=== PATIENT | female | born 1990 | race Two or more races ===

== ENCOUNTER 2016-06-23 17:40 | Emergency (ER) | payer MEDICAID ==
[2016-06-23 17:47] VITALS: BP 124/64
[2016-06-23] MEDS ORDERED: ONDANSETRON 4 MG TAB.RAPDIS PO ONE (17:56)
--- NOTE | 2016-06-23 18:00 | ER Document Report ---
ED GI/ - General Chief Complaint: Abdominal Pain Stated Complaint: VOMITING/DIARRHEA Notes: Patient says that for the past 4 days, she's had vomiting and diarrhea. She says that she is vomiting every time she eats anything and has a diarrhea stool about every time she vomits. Today, she says that she's vomited 7 times and had 7 loose stools. Each time she has them, she feels dizzy. Has not had a fever. Has not noticed any blood in her tools. Has a decreased appetite and doesn't feel like eating. Has abdominal pain across the upper midline region. No lower quadrant abdominal pain. No UTI symptoms. Denies fever. LMP 4 days ago. On no control. TRAVEL OUTSIDE OF THE [place] IN LAST 30 DAYS: No - Related Data Allergies/Adverse Reactions: No Known Allergies Allergy (Unverified 06/23/16 17:44) Past Medical History - Social History Smoking Status: Current Every Day Smoker Family History: Reviewed & Not Pertinent Patient has suicidal ideation: No Patient has homicidal ideation: No Review of Systems - Review of Systems Constitutional: denies: Fever Cardiovascular: denies: Chest pain Respiratory: denies: Cough, Short of breath, Wheezing Gastrointestinal: See HPI, Abdominal pain, Diarrhea, Nausea, Vomiting. denies: Abdomen distended Genitourinary: No symptoms reported Female Genitourinary: Last menstrual period - Finished 4 days ago. Skin: denies: Rash Physical Exam - Vital signs Vitals: Temp Pulse Resp BP Pulse Ox 98.6 F 72 20 124/64 100 06/23/16 17:44 06/23/16 17:44 06/23/16 17:44 06/23/16 17:44 06/23/16 17:44 Interpretation: Normal - Notes Notes: PHYSICAL EXAMINATION: GENERAL: Well-appearing, in no acute distress. Ambulatory without difficulty. Vital signs are all normal. Looks well. HEAD: Atraumatic, normocephalic. ENT: oropharynx clear without exudates. Moist mucous membranes. NECK: Normal range of motion, supple. LUNGS: Breath sounds clear and equal bilaterally. HEART: Regular rate and rhythm without murmurs. ABDOMEN: Soft, nontender. No guarding or rebound. No real specific tenderness anywhere. No masses felt. BACK: No tenderness throughout entire back. EXTREMITIES: Normal range of motion without pain. NEUROLOGICAL: Normal speech, normal gait. Normal sensory, motor, and reflex exams. Awake, alert, and oriented x3. Cranial nerves normal. SKIN: Warm, dry, no rashes. Course - Re-evaluation Re-evalutation: 06/23/16 18:02 Patient will be given Zofran in the emergency department and some labs will be checked. 06/23/16 19:29 All of patient's lab results are essentially normal except for a positive test. Patient's lab studies do not indicate that she is significantly dehydrated. I've ordered a confirmatory quantitative hCG and in discharging the patient with Phenergan for nausea or vomiting. 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 I advised the patient to return at any time if she develops recurrent vaginal bleeding or if she develops significant pelvic pain and discomfort. She was advised to follow-up with a local [facility] possible. - Vital Signs Vital signs: Temp Pulse Resp BP Pulse Ox 98.6 F 85 20 124/64 100 06/23/16 17:46 06/23/16 17:46 06/23/16 17:46 06/23/16 17:46 06/23/16 17:46 - Laboratory Result Diagrams: 06/23/16 17:57 06/23/16 17:57 Laboratory results interpreted by me: 06/23/16 06/23/16 06/23/16 17:55 17:57 17:57 Hgb 10.6 L Hct 33.4 L MCV 78 L MCH 24.7 L MCHC 31.8 L RDW 20.0 H BUN 6 L Glucose 114 H Serum HCG, Qual Beta HCG, Quant 002883.00 H Urine Protein Urine Ketones Ur Leukocyte Esterase 06/23/16 06/23/16 17:57 17:57 Hgb Hct MCV MCH MCHC RDW BUN Glucose Serum HCG, Qual POSITIVE H Beta HCG, Quant Urine Protein 30 H Urine Ketones TRACE H Ur Leukocyte Esterase SMALL H Discharge - Discharge Clinical Impression: Vomiting and diarrhea, Viral illness Qualifiers: Weeks of gestation: less than 8 weeks Qualified Code(s): Z3A.01 - Less than 8 weeks gestation of Condition: Stable Disposition: HOME, SELF-CARE Additional Instructions: VOMITING: Vomiting (or nausea without vomiting) can be caused by many other different problems. It can mean that something's wrong with the stomach, such as ulcers or inflammation or the intestinal tract, such as appendicitis. But it can also be a symptom of a problem that has nothing to do with the stomach or intestines. Vomiting is common with severe headaches, earaches, tonsillitis, and kidney infections, etc. We see it with pneumonia or heart attacks. Drugs can cause nausea and vomiting. Many abdominal problems cause vomiting; for example, gallstones, kidney stones, pancreatitis, and intestinal obstruction ( blocked bowels). In most cases, curing the vomiting depends on fixing the problem that caused it. For temporary relief, we may use an anti-nausea medicine. For home use, we can prescribe suppositories, chewable pills, pills that dissolve in the mouth, or liquid anti-nausea drugs. If the vomiting seems to be caused by a problem in the stomach, acid-suppressing drugs may be prescribed as well. It's important to avoid dehydration. Sip small amounts of clear liquids ( soft drinks, tea, broth, etc) . Try to take fluids frequently even if you are vomiting to prevent dehydration. Take increasing amounts of fluid and when liquids are being consumed successfully, advance to small amounts of bland food (toast, soups, mashed potatoes, etc.) until you are able to resume a regular diet. Avoid aspirin, tobacco, and alcohol. If the vomiting worsens, if the problem that's making you vomit worsens, or if there's evidence of bleeding in the stomach (such as black, tarry stool, or bloody or black vomit), you should return immediately. Also, return if abdominal pain worsens or becomes localized to one area or you develop high fever. Call your doctor if you aren't improved in 24 hours. DIARRHEA, NON-SPECIFIC: Diarrhea means frequent, watery stools. There are many causes. Any problem that keeps the intestinal tract from absorbing water from the stool can lead to diarrhea. A sudden new diarrhea problem is usually caused by a virus, food sensitivity, toxic bacteria, or drugs. In this case, we expect the problem to go away soon. Testing is done only if you seem seriously ill from the diarrhea. If you have chronic diarrhea, or diarrhea that keeps coming back, we need to find out why. Chronic diarrhea can be due to inflammation of the bowels such as Crohn's disease or ulcerative colitis, food sensitivity such as intolerance to lactose or wheat protein, irritable bowel syndrome, and other problems. If your diarrhea is a significant problem but it's not clear why you have it, we' ll refer you to a specialist for further testing. During an episode of diarrhea, drink small amounts (two to six ounces) of clear liquids (soft drinks, sport drinks, herb teas, broth, etc). Take fluids frequently to prevent dehydration. It's usually not a problem to take mild anti- diarrhea medication such as Kaopectate or Pepto-Bismol. As the diarrhea eases, advance to small amounts of bland food (mashed potato, toast) for 24 hours. Call the physician if blood appears in your vomit or stool, if vomiting lasts longer than 24 hours, if the abdominal pain worsens or becomes localized to one area, if you develop high fever, or if you become lightheaded and weak. VIRAL SYNDROME: The physician has diagnosed a viral infection. Viruses not only cause "colds," but can cause many different symptoms including generalized aching, fever, headache, cough, diarrhea, nausea, vomiting, and fatigue. The treatment, for the most part, is simply relief of symptoms. This means that antibiotics are usually not given. Rest, fluids, pain medications and, occasionally, medication for the specific symptoms that are most bothersome will be prescribed. Use good handwashing to avoid passing the virus to others. Shared toys should be cleaned with disinfectant. Clean the toilets, sinks, and counter surfaces in bathrooms. Launder clothing in hot water. Contact the physician if you develop any new or unusual symptoms such as severe headache, stiff neck, high fever, chest pain, productive cough, or shortness of breath. You should be rechecked if you don't see marked improvement within seven to 10 days. ANTINAUSEA MEDICATION: You have been given a medication to suppress nausea and vomiting. This type of medication can be given as a shot, pill, or suppository. It will usually last for many hours. Pills and shots usually last six to eight hours. For the typical illness, only one or two doses of the medication may be necessary. Mild lightheadedness may occur. This type of medicine can cause drowsiness. Do not drive or operate dangerous machinery while under its influence. Do not mix with alcohol. See your doctor at once if you have muscle spasms or tightness, or uncontrollable motions (particularly of the neck, mouth, or jaw). Persistent vomiting or severe lightheadedness should also be evaluated by the physician. You are . care is best started as early in as possible. If you're unsure about continuing this , you should discuss this with your physician or with it security project manager at [facility]. You should take only medications approved by your physician. Acetaminophen can safely be taken for minor pains. As a rule, medication for chronic conditions such as asthma or seizures can safely be continued. You should discuss with the physician every medicine you take. Any regular exercise program can be continued. Talk to your physician, however, before engaging in competitive or demanding sports. Alcohol, smoking, and "street drugs" are dangerous to your baby. Cocaine is especially dangerous. Don't use any illicit drugs! You should arrange to follow-up with a local [facility] in the coming week or 2. If you have recurring vaginal bleeding, you can return for us to reassess your situation. FOLLOW-UP CARE: If you have been referred to a physician for follow-up care, call the physician s office for an appointment as you were instructed or within the next two days. If you experience worsening or a significant change in your symptoms, notify the physician immediately or return to the Emergency Department at any time for re-evaluation. Prescriptions: Promethazine HCl [Phenergan 25 mg Tablet] 1 - 2 tab PO Q6H PRN #15 tablet PRN Reason:
[2016-06-23 18:28] LABS: APPEARANCE,URINE SLIGHTLY-CLOUDY; BILIRUBIN,URINE NEGATIVE (NEGATIVE); GLUCOSE, URINE NEGATIVE (NEGATIVE); KETONES,URINE TRACE mg/dL (NEGATIVE); LEUKOCYTE ESTERASE,URINE SMALL (NEGATIVE); NITRITE,URINE NEGATIVE (NEGATIVE); PROTEIN,URINE 30 mg/dL (NEGATIVE); URINE SPECIFIC GRAVITY 1.027; UROBILINOGEN,URINE NEGATIVE mg/dL (<2.0)
[2016-06-23 18:38] LABS: ABSOLUTE EOSINOPHILS # (AUTO) 0.1 10^3/uL (0.0-0.6); ABSOLUTE LYMPHOCYTES (AUTO) 2.1 10^3/uL (0.5-4.7); ABSOLUTE MONOCYTES (AUTO) 0.6 10^3/uL (0.1-1.4); ABSOLUTE NEUT (AUTO) 6.4 10^3/uL (1.7-8.2); BASOPHILS % (AUTO) 0.3 % (0-2); EOSINOPHILS % (AUTO) 0.6 % (0-6); HEMATOCRIT 33.4 % (36.0-47.0); HEMOGLOBIN 10.6 g/dL (12.0-15.5); HGB HCT DIFFERENCE -1.6; LYMPHOCYTES % (AUTO) 22.9 % (13-45); MEAN CORPUSCULAR HEMOGLOBIN 24.7 pg (27.0-33.4); MEAN CORPUSCULAR HGB CONC 31.8 g/dL (32.0-36.0); MEAN CORPUSCULAR VOLUME 78 fl (80-97); MONOCYTES % (AUTO) 6.6 % (3-13); RED BLOOD COUNT 4.29 10^6/uL (3.72-5.28); SEGMENTED NEUTROPHILS % (AUTO) 69.6 % (42-78); WHITE BLOOD COUNT 9.1 10^3/uL (4.0-10.5)
[2016-06-23 18:55] LABS: ALANINE AMINOTRANSFERASE 25 U/L (9-52); ALKALINE PHOSPHATASE 65 U/L (38-126); ANION GAP 11 (5-19); ASPARTATE AMINO TRANSFERASE 15 U/L (14-36); BILIRUBIN,DIRECT 0.2 mg/dL (0.0-0.4); BILIRUBIN,TOTAL 0.4 mg/dL (0.2-1.3); BLOOD UREA NITROGEN 6 mg/dL (7-20); CALCIUM 9.3 mg/dL (8.4-10.2); CARBON DIOXIDE 22 mmol/L (22-30); CHLORIDE 107 mmol/L (98-107); CREATININE RESULT 0.67 mg/dL (0.52-1.25); GLUCOSE 114 mg/dL (75-110); POTASSIUM 4.2 mmol/L (3.6-5.0); SODIUM 140.3 mmol/L (137-145); TOTAL PROTEIN 7.4 g/dL (6.3-8.2)
== END 2016-06-23 19:27 | disposition home or self-care (01) ==
LOC: ER 17:40
DX: O21.9 Vomiting of pregnancy, unspecified (principal); O98.511 Other viral diseases complicating pregnancy, first trimester; O26.891 Other specified pregnancy related conditions, first trimester; R19.7 Diarrhea, unspecified; R42 Dizziness and giddiness; R63.0 Anorexia; R10.13 Epigastric pain; O99.331 Smoking (tobacco) complicating pregnancy, first trimester; Z3A.01 Less than 8 weeks gestation of pregnancy
CPT/HCPCS: 99284; 36415; 84702; 84703; 85025; 80053; 81001; S0119

== ENCOUNTER 2017-07-21 11:03 | Outpatient (CLI) | payer MEDICAID ==
[2017-07-21] MEDS ORDERED: BETAMET ACET/BETAMET NA INJ 6 MG/1 ML IM ONE ×2 (11:35→12:16)
[2017-07-21 12:01] LABS: APPEARANCE,URINE SLIGHTLY-CLOUDY; BILIRUBIN,URINE NEGATIVE (NEGATIVE); COLOR,URINE YELLOW; GLUCOSE, URINE NEGATIVE (NEGATIVE); KETONES,URINE NEGATIVE (NEGATIVE); LEUKOCYTE ESTERASE,URINE TRACE (NEGATIVE); NITRITE,URINE NEGATIVE (NEGATIVE); PROTEIN,URINE 30 mg/dL (NEGATIVE); URINE SPECIFIC GRAVITY 1.019; UROBILINOGEN,URINE NEGATIVE mg/dL (<2.0)
[2017-07-21] MEDS ORDERED: BETAMET ACET/BETAMET NA INJ 6 MG/1 ML ONE (12:12)
[2017-07-21 12:22] LABS: URINE AMPHETAMINES SCREEN NEGATIVE; URINE BARBITURATES SCREEN NEGATIVE; URINE BENZODIAZEPINES SCREEN NEGATIVE; URINE COCAINE SCREEN NEGATIVE; URINE METHADONE SCREEN NEGATIVE; URINE PHENCYCLIDINE SCREEN NEGATIVE
[2017-07-21 12:24] LABS: URINE MARIJUANA (THC) SCREEN UNCONFIRMED POSITIVE
--- NOTE | 2017-07-21 15:19 | Non Stress Test Report ---
Non Stress Test Datetime Report Generated by CPN: 07/21/2017 15:18 DEMOGRAPHIC EGA NST: 32.3 INDICATION Indication for Study: Ordered by Provider; Other Indication for Study (NST) Other: labor check MONITORING Monitor Explained: Monitor Explained; Test Explained; Patient Verbalized Understanding Time on Monitor: 07/21/2017 11:25 Time off Monitor: 07/21/2017 12:57 NST Duration: 92 NST INTERVENTIONS NST Interventions: None Physician Notified NST: H. Timo CNM BABY A: [id number] BABY A Movement : Present Contraction Frequency : none FHR Baseline : 140 Accelerations : 15X15 Decelerations : None Variability : Moderate 6-25bpm NST Review: Meets Criteria for Reactive NST NST Review and Verified By : Breann Camp RNC NST Results: Reactive NST REPORT Report Trigger: Send Report
== END 2017-07-21 13:17 | disposition home or self-care (01) ==
LOC: LC 11:03
PROVIDERS: ATTEND Student in an Organized Health Care Education/Training Program
PROC: 4A1HXCZ Monitoring of Products of Conception, Cardiac Rate, External Approach (ICD-10-PCS; principal; 2017-07-21)
DX: O26.873 Cervical shortening, third trimester (principal); Z3A.32 32 weeks gestation of pregnancy
CPT/HCPCS: 59025; 96372; 81001; 80307; G0480 ×2; J0702

== ENCOUNTER → 2017-07-22 | Outpatient (CLI) | payer MEDICAID ==
[~2017-07-22] MED LIST: BETAMET ACET/BETAMET NA INJ 6 MG/1 ML ONE
== END ==
LOC: LC 12:00
PROVIDERS: ATTEND Obstetrics & Gynecology
PROC: 4A1HXCZ Monitoring of Products of Conception, Cardiac Rate, External Approach (ICD-10-PCS; principal; 2017-07-22)
DX: O26.873 Cervical shortening, third trimester (principal); Z3A.32 32 weeks gestation of pregnancy
CPT/HCPCS: 59025; J0702

== ENCOUNTER 2017-08-12 05:17 | Inpatient (IN) | payer MEDICAID ==
[2017-08-12] MEDS ORDERED: RINGERS SOLUTION,LACTATED 1,000 ML IV PRN (05:28)
[2017-08-12] MEDS ORDERED: MISOPROSTOL 0.2 MG TABLET ONE (05:30)
[2017-08-12] MEDS ORDERED: LIDOCAINE 1% INJ-PF (10 MG/ML) 30 ML SDV ONE (05:30)
[2017-08-12] MEDS ORDERED: OXYTOCIN/NORMAL SALINE 20 UNIT/1,000 ML RTUINJ ONE (05:31)
[2017-08-12] MEDS ORDERED: PENICILLIN G-K 5 MILLION UNIT VIAL ONE (05:31)
--- NOTE | 2017-08-12 05:35 | Admission Physical ---
Datetime Report Generated by CPN: 08/12/2017 05:34 CURRENT ADMISSION Indication for Induction: Not Applicable Admit Impression : , Intrauterine ; Active Labor Admit Plan: Admit to Unit; Initiate Labor Protocol ALLERGIES Medication Allergies: No Medication Allergies: No Known Allergies (06/23/2016) Latex: No Latex Allergies OBSTETRICAL HISTORY EDC: 09/12/2017 00:00 : 5 Para: 2 Term: 1 : 1 SAB: 2 IAB: 0 Ectopic: 0 Livin Cesareans: 0 VBACs: 0 Multiple Births: 0 SEE RECORDS Alcohol: No Marijuana : No Cocaine: No Other Illicit Drugs: No Cigarettes: Former Smoker. [id number] PHYSICAL EXAM General: Normal HEENT: Normal Neurologic: Normal Thyroid: Normal Heart: Normal Lungs: Normal Breast: Normal Back: Normal Abdomen: Normal Genitourinary Exam: Normal Extremities: Normal DTRs: Normal Pelvic Type: Adequate Vital Signs: Reviewed VAGINAL EXAM Dilatation: 6 Effacement: 100 Station: -1 MEMBRANES Pooling: Negative Membranes: Intact FETUS A Monitoring: External US FHR- Baseline: 140 Variability: Moderate 6-25bpm Accelerations: 15X15 Decelerations: None FHR Category: Category I Estimated Weight (gm): 3100 Presentation: Vertex Admit Comment: deliveries x 2 in previous pregnancies, will treat GBS as it is unknown PLANS FOR LABOR AND DELIVERY Labor and Delivery: None Pain Management: Natural Feeding Preference: Formula Benefit of Breast Feed Discussed: Yes Circumcision: Yes INFORMED CONSENT Signature: with User ID: [email or web address]
[2017-08-12 06:09] LABS: HEMATOCRIT 24.6 % (36.0-47.0); HEMOGLOBIN 8.1 g/dL (12.0-15.5); MEAN CORPUSCULAR HEMOGLOBIN 26.9 pg (27.0-33.4); MEAN CORPUSCULAR HGB CONC 33.1 g/dL (32.0-36.0); MEAN CORPUSCULAR VOLUME 81 fl (80-97); PLATELET COUNT 290 10^3/uL (150-450); RED BLOOD COUNT 3.03 10^6/uL (3.72-5.28); RED CELL DISTRIBUTION WIDTH 16.2 % (11.5-14.0)
[2017-08-12] MEDS ORDERED: EPHEDRINE SULFATE INJ 50 MG/1 ML AMPULE ONE (06:16)
[2017-08-12] MEDS ORDERED: BUPIVACAINE HCL 0.25 % INJ/PF (2.5 MG/1 ML) 30 ML VIAL ONE (06:16)
[2017-08-12] MEDS ORDERED: FENTANYL/BUPIVACAINE/NS/PF 300 MCG/150 ML RTUINJ EPI ONE (06:16)
[2017-08-12] MEDS ORDERED: FENTANYL CITRATE INJ/PF 100 MCG/2 ML AMPUL ONE (06:17)
[2017-08-12] MEDS ORDERED: LIDOCAINE 2%/EPINEPHRINE INJ 20 ML VIAL ONE (06:31)
--- NOTE | 2017-08-12 07:41 | L&D Progress Notes ---
PROGRESS NOTES Datetime Report Generated by CPN: 08/12/2017 07:40 PROGRESS NOTE Impression: Reassuring Heart Rate Procedures: Artificial ROM Plan: Continue Present Management Vital Signs : Reviewed Comment: Pt feeling ctx pt with heavier bleeding, 2 golfball size clots AROM, clear VAGINAL EXAM Dilatation: 9 Dilatation: 6 Effacement: 100 Effacement: 100 Station: 0 Station: -1 Contractions: 2-10 MEMBRANES Pooling: Negative Membranes: Ruptured Membranes: Intact Amniotic Fluid Color: Clear FETUS A FHR - Baseline: 145 Variability: Moderate 6-25bpm Accelerations: 15X15 Decelerations: None FHR Category: Category I : 35.4 Estimated Weight (gm): 3100 Presentation: Vertex SIGNATURE SIGNATURE: [id number] SIGNATURE: ,[id number];,[id number] SIGNATURE: [id number] Assignment: Michelle Fontenot MD Signature: with User ID: [email or web address] : with User ID: [email or web address]
[2017-08-12] MEDS ORDERED: ACETAMINOPHEN WITH CODEINE #3 TABLET ONE (08:33)
[2017-08-12] MEDS ORDERED: PENICILLIN G POTASSIUM 2,500,000 UNIT in DEXTROSE 5%-WATER 50 ML IV SCH (09:30)
[2017-08-12] MEDS ORDERED: OXYTOCIN/NORMAL SALINE 20 UNIT/1,000 ML RTUINJ IV PRN (10:12)
[2017-08-12] MEDS ORDERED: BENZOCAINE/MENTHOL AEROSOL SPRAY 56 ML TOP PRN (10:12)
[2017-08-12] MEDS ORDERED: DIPH/PERTUSS(ACELL)/TETANUS VAC/PF 0.5 ML SYR (>=10YO) IM PRN (10:12)
[2017-08-12] MEDS ORDERED: DIBUCAINE 1% OINTMENT 28 GM TP PRN (10:12)
[2017-08-12] MEDS ORDERED: MEASLES,MUMPS&RUBELLA VACC/PF 0.5 ML VIAL SUBCUT PRN (10:12)
[2017-08-12] MEDS ORDERED: ZOLPIDEM TARTRATE 5 MG TABLET PO PRN (10:12)
[2017-08-12] MEDS ORDERED: ACETAMINOPHEN WITH CODEINE #3 TABLET PO PRN ×2 (10:12)
[2017-08-12] MEDS: IBUPROFEN 800 MG TABLET PO SCH ×2 (14:24→21:38)
[2017-08-12] MEDS: DOCUSATE SODIUM 100 MG CAPSULE PO SCH (17:14)
[2017-08-12] MEDS: FERROUS SULFATE 325 MG TABLET PO SCH (17:14)
[2017-08-13] MEDS: IBUPROFEN 800 MG TABLET PO SCH ×3 (05:49→21:06)
[2017-08-13 06:51] LABS: MEAN CORPUSCULAR HEMOGLOBIN 27.5 pg (27.0-33.4); MEAN CORPUSCULAR HGB CONC 33.6 g/dL (32.0-36.0); MEAN CORPUSCULAR VOLUME 82 fl (80-97); PLATELET COUNT 257 10^3/uL (150-450); RED BLOOD COUNT 2.45 10^6/uL (3.72-5.28); RED CELL DISTRIBUTION WIDTH 16.2 % (11.5-14.0); WHITE BLOOD COUNT 10.7 10^3/uL (4.0-10.5)
[2017-08-13 06:58] LABS: HEMOGLOBIN 6.7 g/dL (12.0-15.5)
--- NOTE | 2017-08-13 09:38 | PDOC PROGRESS REPORT ---
Subjective-OB Progress Note for:: 08/13/17 Subjective: s/p day #1 Pt denies concerns, states lochia is stable, pain well controlled, voiding without difficulty. Physical Exam (OB) Vital Signs: Temp Pulse Resp BP Pulse Ox 98.7 F 59 L 16 105/52 L 99 08/13/17 07:43 08/13/17 07:43 08/13/17 07:43 08/13/17 07:43 08/13/17 07:43 Intake & Output 08/12/17 08/13/17 08/14/17 06:59 06:59 06:59 Intake Total 200 Balance 200 - Lochia Lochia Amount: Scant < 10 ml Lochia Color: Rubra/Red - Abdomen Description: Soft, Flat Hernia Present: No Fundal Description: Firm, Midline Fundal Height: u/u - u/2 Objective-Diagnostic Laboratory: 08/13/17 06:29 08/13/17 06:29 WBC 10.7 H RBC 2.45 L Hgb 6.7 L Hct 20.0 L MCV 82 MCH 27.5 MCHC 33.6 RDW 16.2 H Plt Count 257 Assessment and Plan(PN) - Assessment and Plan (1) Vaginal delivery Is this a current diagnosis for this admission?: Yes Plan: routine pp care (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
[2017-08-13] MEDS: PRENATAL VITAMIN W DHA CAPSULE PO SCH (09:51)
[2017-08-13] MEDS: SENNOSIDES/DOCUSATE 8.6-50 MG 1 EACH TABLET PO SCH (09:51)
[2017-08-13] MEDS: FERROUS SULFATE 325 MG TABLET PO SCH ×2 (09:51→17:47)
[2017-08-13] MEDS: DOCUSATE SODIUM 100 MG CAPSULE PO SCH ×2 (09:51→17:47)
[2017-08-14] MEDS: IBUPROFEN 800 MG TABLET PO SCH ×2 (05:36→13:46)
--- NOTE | 2017-08-14 09:11 | PDOC DISCHARGE SUMMARY ---
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 Is this a current diagnosis for this admission?: Yes (3) delivery Is this a current diagnosis for this admission?: Yes (4) Smoker Is this a current diagnosis for this admission?: Yes Discharge Data - Discharge Medication Prescriptions: Docusate Sodium [Colace 100 mg Capsule] 100 mg PO BID #60 capsule Ferrous Sulfate [Feosol 325 mg Tablet] 325 mg PO BID #60 tablet Ibuprofen [Motrin 800 mg Tablet] 800 mg PO Q8 #60 tablet Home Medications: Promethazine HCl [Phenergan 25 mg Tablet] 1 - 2 tab PO Q6H PRN #15 tablet Docusate Sodium [Colace 100 mg Capsule] 100 mg PO BID #60 capsule 08/14/17 Ferrous Sulfate [Feosol 325 mg Tablet] 325 mg PO BID #60 tablet 08/14/17 Ibuprofen [Motrin 800 mg Tablet] 800 mg PO Q8 #60 tablet 08/14/17 Gestational Age: 35.6 Reason(s) for Admission: Onset of Labor, Group B Strep Positive Procedures: NST Intrapartum Procedure(s): Spontaneous Vaginal Delivery - Data Baby 1 Male Home with Mother: No Complications: No - - Diagnosis Test Laboratory: Temp Pulse Resp BP Pulse Ox 97.9 F 52 L 16 96/44 L 100 08/14/17 08:07 08/14/17 08:07 08/14/17 08:07 08/14/17 08:07 08/14/17 08:07 08/12/17 08/13/17 05:50 06:29 RBC 3.03 L 2.45 L Hgb 8.1 L 6.7 L Hct 24.6 L 20.0 L - Discharge information/Instructions Discharge Activity: Activity As Tolerated, Pelvic Rest, No tub bath Discharge Diet: Regular Disposition: HOME, SELF-CARE Follow up with: [facility] in: 4, Weeks
[2017-08-14] MEDS: DOCUSATE SODIUM 100 MG CAPSULE PO SCH (09:58)
[2017-08-14] MEDS: PRENATAL VITAMIN W DHA CAPSULE PO SCH (09:58)
[2017-08-14] MEDS: SENNOSIDES/DOCUSATE 8.6-50 MG 1 EACH TABLET PO SCH (09:58)
[2017-08-14] MEDS: FERROUS SULFATE 325 MG TABLET PO SCH (09:58)
[2017-08-14 10:35] VITALS: BP 103/53
--- NOTE | 2017-08-18 14:30 | Delivery Summary ---
Del Sum A-C Datetime Report Generated by CPN: 08/18/2017 14:29 DELIVERY PERSONNEL DELIVERY PERSONNEL: [id number] Delivery Doctor:: Katie Greenwood CNM Labor and Delivery Nurse:: Delores Davies RN (Annotations: Data stored by Clara on behalf of user) Labor and Delivery Nurse:: Delores Davies RN Nursery Nurse:: Anahi Cristobal RN MATERNAL INFORMATION Delivery Anesthesia: Epidural Medications After Delivery: Pitocin Bolus-Please Comment Meds After Delivery Comment: Pitocin 20 units in 1000mL NS Maternal Complications: Abruptio Placenta Provider Comments: of viable male infant over intact perineum, head shoulders and body delivered without difficulty, infant with spontaneous cry and respirations, to maternal abdomen, cord clamped X2 and cut free by pts support person, spontaneous delivery of placenta via [place], appears intact, very small, 3 VC, vagina and perineum insptect, no lacerations noted. mother and infant in stable condition, routine pp care LABOR SUMMARY EDC: 09/12/2017 00:00 No. Babies in Womb: 1 Labor Anesthesia: Epidural LABOR INFORMATION Reason for Induction: Not Applicable Complete Dilatation: 08/12/2017 07:37 Cervical Ripening Agents: Cervidil Oxytocin: N/A Group B Beta Strep: 1 Antibiotics # of Doses: 1 Antibiotics Time of Last Dose: 535 Name of Antibiotic Given: PCN Steroids Given: None Reason Steroids Not Administered: Not Applicable MEMBRANES Membranes Rupture Method: Artificial Rupture of Membranes: 08/12/2017 07:33 Length of Rupture (hr): 0.33 Amniotic Fluid Color: Clear Amniotic Fluid Amount: Moderate STAGES OF LABOR Stage 2 hr: 0 Stage 2 min: 16 Stage 3 hr: 0 Stage 3 min: 3 VAGINAL DELIVERY Episiotomy: None Laceration #1: None Laceration Extension #1: N/A Laceration Repair: Not Applicable Laceration Repair Note: n/a Sponge Count Correct: N/A Sharps Count Correct: N/A CSECTION DELIVERY CSection Incision: N/A BABY A INFORMATION Delivery Date/Time: 08/12/2017 07:53 Method of Delivery: Vaginal Born in Route : No : N/A Forceps: N/A Vacuum Extraction: N/A Shoulder Dystocia : No PRESENTATION/POSITION BABY A Presentation: Cephalic Cephalic Presentation: Vertex PLACENTA INFORMATION BABY A Placenta Delivery Time : 08/12/2017 07:56 Placenta Method of Delivery: Spontaneous Placenta Status: Delivered SCORES BABY A Heart Rate 1 min: >100 bpm Resp Effort 1 min: Good Cry Reflex Irritability 1 min: Cough or Sneeze or Pulls Away Muscle Tone 1 min: Active Motion Color 1 min: Blue/Pale Resuscitation Effort 1 min: Tactile Stimulation SCORE 1 MIN: 8 Heart Rate 5 min: >100 bpm Resp Effort 5 min: Good Cry Reflex Irritability 5 min: Cough or Sneeze or Pulls Away Muscle Tone 5 min: Active Motion Color 5 min: Body [place], Extremities Blue Resuscitation Effort 5 min: Tactile Stimulation SCORE 5 MIN: 9 INFANT INFORMATION BABY A Gestational Age at Delivery: 35.4 Gestational Status: Late - 34- 36.6 Weeks Infant Outcome : Liveborn Infant Condition : Stable Infant Sex: Male IDENTIFICATION BABY A Verification Date/Time: 08/12/2017 08:21 ID Band Number: [id number] Mother's Name Verified: Yes Infant RN Verifying : Natasha Davies, RN and C. Ben, RN WEIGHT/LENGTH BABY A Birthweight (gm): 2575 Infant Weight (lb): 5 Infant Weight (oz): 11 Infant Length (in): 18.50 Length (cm): 46.99 CORD INFORMATION BABY A No. Cord Vessels: 3 Nuchal Cord : N/A Cord Blood Taken: Yes-For Storage (Mom's Blood type +) ASSESSMENT BABY A Infant Complications: None Physical Findings at Delivery: Within Normal Limits Respirations: Appears Normal Bakery Associate/ALS Called : No Infant Care By: Natasha Davies RN Transferred To: Remains with Mother SIGNATURES Assignment: Michelle Fontenot MD Signature: with User ID: Levi : with User ID: [email or web address]
== END 2017-08-14 14:14 | disposition home or self-care (01) | DRG 775 ==
LOC: LC 05:17 → LR 05:31 → 2N 10:03
PROVIDERS: ADMIT Obstetrics & Gynecology; ATTEND Obstetrics & Gynecology
PROC: 10E0XZZ Delivery of Products of Conception, External Approach (ICD-10-PCS; principal; 2017-08-12)
PROC: 4A1HXCZ Monitoring of Products of Conception, Cardiac Rate, External Approach (ICD-10-PCS; 2017-08-12)
DX: O60.14X0 Preterm labor third trimester with preterm delivery third trimester, not applicable or unspecified (principal); O99.824 Streptococcus B carrier state complicating childbirth; O99.334 Smoking (tobacco) complicating childbirth; F17.200 Nicotine dependence, unspecified, uncomplicated; Z3A.35 35 weeks gestation of pregnancy; Z37.0 Single live birth
CPT/HCPCS: 36415; 85027; 86592; 86850; 86870; 86900; 86901; J2540; J2590; J3010; J3490